=== PATIENT | female | born 1940 | race African-American/Black ===

== ENCOUNTER 2017-01-08 16:28 | Inpatient (IN) | payer OTHER, BC ==
[~2017-01-08] VITALS: Ht 162.6 cm; Wt 107.7 kg
[~2017-01-08 16:28] MED LIST: BENICAR HCT1 TABLET PO; CRESTOR10 MG PO; NORVASC10 MG PO
[2017-01-08 17:19] LABS: HEMATOCRIT 38.7 % (36.0-46.0); MCH 28.6 PG (29.0-34.0); MCHC 33.1 G/DL (30.0-36.0); MCV 86.4 FL (83-99); RBC DIS.WIDTH-CV 14.1 % (11.8-14.6); RBC DIS.WIDTH-SD 44.2 % (39-53); RED BLOOD COUNT 4.48 M/uL (3.80-5.20); WHITE BLOOD COUNT 13.1 K/uL (4.1-10.2)
[2017-01-08 17:29] LABS: CHLORIDE 110 mEq/L (99-109); POTASSIUM 3.3 mEq/L (3.7-5.4); SODIUM 142 mEq/L (136-147)
[2017-01-08 17:30] LABS: GLUCOSE 133 mg/dL (70-99)
[2017-01-08 17:32] LABS: ANION GAP 8 MEQ/L (2-14)
[2017-01-08 17:34] LABS: GFR ESTIMATE (CALCULATED) 47 mL/min/
[2017-01-08 17:35] LABS: UREA NITROGEN (BUN) 19 mg/dL (9-23)
[2017-01-08 18:01] LABS: C-REACTIVE PROTEIN 64.7 MG/L (0-10)
[2017-01-08 18:12] LABS: ERTH.SED.RATE 42 MM/HR (0-30)
[2017-01-08 18:21] LABS: MEAN PLAT.VOLUME 12.7 uM^3 (9.5-12.4); PLAT.SUFFICIENCY ADEQUATE; PLATELET COUNT 129 K/uL (156-360)
[2017-01-08 20:30] LABS: URIC ACID 8.8 mg/dL (3.1-9.2)
[2017-01-08 21:05] LABS: APPEARANCE HAZY-YELLOW; MONONUCLEAR WBC'S 13 %; POLYNUCLEAR WBC'S 87 % (0-25); RED CELL COUNT 1000 /MM^3 (0-1); SYNOVIAL FLUID EOSINOPHILS 0 % (0-25); WHITE CELL COUNT 22896 /MM^3 (0-200.0)
[2017-01-08 22:35] LABS: ADD MIUA? NO; BILIRUBIN NEGATIVE; BLOOD NEGATIVE; COLOR YELLOW ((YELLOW)); GLUCOSE (STRIP) NEGATIVE; KETONES NEGATIVE; LEUKOCYTES NEGATIVE; NITRITE NEGATIVE; PROTEIN (STRIP) NEGATIVE; SPECIFIC GRAVITY 1.012 (1.000-1.030); UCUL ADDED? NO; UROBILINOGEN 0.2 MG/DL (0.2-1.0)
[2017-01-08] MEDS ORDERED: DITROPAN XL5 MG PO (23:51)
[2017-01-08] MEDS ORDERED: LIVALO2 MG PO (23:51)
[2017-01-08] MEDS ORDERED: OMEPRAZOLE40 M1 PO (23:51)
[2017-01-08] MEDS ORDERED: BENICAR HCT 401 EAC1 PO (23:51)
[2017-01-09] VITALS (7 sets, daily range): BP systolic 82–114; BP diastolic 51–62
[2017-01-09 05:30] LABS: HEMATOCRIT 36.2 % (36.0-46.0); MCH 29.1 PG (29.0-34.0); MCHC 33.1 G/DL (30.0-36.0); MCV 87.9 FL (83-99); MEAN PLAT.VOLUME 13.2 uM^3 (9.5-12.4); PLATELET COUNT 122 K/uL (156-360); RBC DIS.WIDTH-CV 14.5 % (11.8-14.6); RBC DIS.WIDTH-SD 46.8 % (39-53); RED BLOOD COUNT 4.12 M/uL (3.80-5.20); WHITE BLOOD COUNT 9.6 K/uL (4.1-10.2)
[2017-01-09 06:45] LABS: ANION GAP 9 MEQ/L (2-14); CHLORIDE 110 MEQ/L (99-109); GFR ESTIMATE (CALCULATED) 47 mL/min/; GLUCOSE 129 mg/dL (70-99); POTASSIUM 3.6 MEQ/L (3.7-5.4); SAMPLE HEMOLYSIS CHECK 0; SAMPLE ICTERIC CHECK 0; SAMPLE LIPEMIA CHECK 0; SODIUM 145 MEQ/L (136-147); UREA NITROGEN (BUN) 21 mg/dL (9-23)
[2017-01-09 08:55] LABS: C-REACTIVE PROTEIN 80.1 MG/L (0-10)
[2017-01-09 09:25] LABS: ERTH.SED.RATE 38 MM/HR (0-30)
[2017-01-10 04:23] VITALS: BP 110/59
[2017-01-10 05:44] LABS: HEMATOCRIT 35.3 % (36.0-46.0); MCH 28.2 PG (29.0-34.0); MEAN PLAT.VOLUME 13.3 uM^3 (9.5-12.4); PLATELET COUNT 126 K/uL (156-360); RBC DIS.WIDTH-CV 14.2 % (11.8-14.6); RBC DIS.WIDTH-SD 45.7 % (39-53); RED BLOOD COUNT 4.01 M/uL (3.80-5.20); WHITE BLOOD COUNT 10.3 K/uL (4.1-10.2)
[2017-01-10 06:09] LABS: ANION GAP 8 MEQ/L (2-14); CHLORIDE 113 MEQ/L (99-109); GFR ESTIMATE (CALCULATED) 47 mL/min/; GLUCOSE 159 mg/dL (70-99); POTASSIUM 4.3 MEQ/L (3.7-5.4); SAMPLE HEMOLYSIS CHECK 0; SAMPLE ICTERIC CHECK 0; SAMPLE LIPEMIA CHECK 0; SODIUM 141 MEQ/L (136-147); UREA NITROGEN (BUN) 22 mg/dL (9-23)
[2017-01-10 09:14] VITALS: BP 118/62
[2017-01-10] MEDS ORDERED: PREDNISONE20 MG PO (10:47)
[2017-01-10] MEDS ORDERED: Salonpas 4% Patch TD (10:48)
== END 2017-01-10 13:09 | disposition home or self-care (01) | DRG 549 ==
LOC: EME 16:28 → EDOF 01-09 00:56 → 5WEST 01-09 00:56 → EDOF 01-09 00:56 → ENRESERV 01-09 00:58 → 5WEST 01-09 01:46
PROVIDERS: Hospitalist; Nurse Practitioner Adult Health; Physician Assistant Medical
PROC: 0S9D3ZZ Drainage of Left Knee Joint, Percutaneous Approach (ICD-10-PCS; principal; 2017-01-09)
DX: M00.9 Pyogenic arthritis, unspecified (principal); M10.9 Gout, unspecified; M79.675 Pain in left toe(s); N18.3 Chronic kidney disease, stage 3 (moderate); I12.9 Hypertensive chronic kidney disease with stage 1 through stage 4 chronic kidney disease, or unspecified chronic kidney disease; M25.562 Pain in left knee; D69.6 Thrombocytopenia, unspecified; N17.9 Acute kidney failure, unspecified; E87.6 Hypokalemia; I95.9 Hypotension, unspecified; E66.01 Morbid (severe) obesity due to excess calories; R32 Unspecified urinary incontinence; E78.5 Hyperlipidemia, unspecified; Z68.41 Body mass index [BMI] 40.0-44.9, adult; Z87.891 Personal history of nicotine dependence; Z80.3 Family history of malignant neoplasm of breast; Z82.49 Family history of ischemic heart disease and other diseases of the circulatory system; Z83.3 Family history of diabetes mellitus; Z79.899 Other long term (current) drug therapy; E78.00 Pure hypercholesterolemia, unspecified; M17.0 Bilateral primary osteoarthritis of knee; Z90.49 Acquired absence of other specified parts of digestive tract
CPT/HCPCS: 73564; 80048; 81003; 83605; 84550; 85027; 85651; 86140; 87040; 87205; 89051; 89060; 90686; 93971; 99281; 99285; J0696; J1644; J1885; J2270; J3370; J7030; J7050; J7512